=== PATIENT | male | born 1990 | race Caucasian/White ===

== ENCOUNTER → 2018-04-01 15:31 | Outpatient (REF) | payer BC, SELFPAY ==
[2018-04-01 16:49] LABS: Basophils % 0.6 % (0.1-2.0); Eosinophils # 0.1 K/mm3 (0.0-0.4); Eosinophils % 1.9 % (0.1-12.0); Hematocrit 48.2 % (42.0-52.0); Hemoglobin 15.9 g/dL (14.1-18.0); Lymphocytes # 2.2 K/mm3 (0.7-4.5); Lymphocytes % 32.3 K/mm3 (10-50); Mean Corpuscular Hemoglobin 29.7 pg (27.0-31.2); Mean Corpuscular Volume 89.9 fl (80-94); Mean Platelet Volume 7.7 fl (7.4-10.4); Monocytes # 0.4 K/mm3 (0.1-1.0); Monocytes % 5.9 % (1.7-9.3); Neutrophils % 59.2 % (37.0-80.0); Platelet Count 246 K/mm3 (142-424); Red Blood Count 5.36 M/mm3 (4.60-6.20); Red Cell Distribution Width 12.3 % (11.5-17.5); White Blood Count 6.8 K/mm3 (4.8-10.8)
[2018-04-01 19:10] LABS: Alanine Aminotransferase 56 U/L (12-78); Albumin Level 4.2 gm/dL (3.4-5.0); Albumin/Globulin Ratio 1.3 (1.1-1.8); Alkaline Phosphatase 62 U/L (46-116); Anion Gap 13.9 mEq/L (5-15); Aspartate Amino Transferase 23 U/L (15-37); Bilirubin,Total 0.5 mg/dL (0.2-1.0); Blood Urea Nitrogen 15 mg/dL (7-18); Calcium 9.1 mg/dL (8.5-10.1); Carbon Dioxide 25 mmol/L (21.0-32.0); Chloride 106 mmol/L (98-107); Chol/HDL Ratio 3.3 (1-3.5); Cholesterol 183 mg/dL (140-200); Creatinine,Serum 1.01 mg/dL (0.70-1.30); Estimated Glomerular Filt Rate 88 ml/min (>60); Free T4 (Free Thyroxine) 1.07 ng/dl (0.76-1.46); GFR (African American) 106 ML/MIN (>60); Globulin 3.2 gm/dl (1.3-3.2); Glucose 111 mg/dL (74-106); HDL Cholesterol 56 mg/dL (27-67); LDL Cholesterol 107 mg/dL (0-130); Potassium 3.9 mmoL/L (3.5-5.1); Sodium 141 mmol/L (136-145); Thyroid Stimulating Hormone 0.95 uIU/ml (0.358-3.740); Total Protein,Serum 7.4 gm/dL (6.4-8.2); Triglycerides 102 mg/dL (30-200); VLDL Cholesterol 20 mg/dL (0-40)
== END ==
LOC: LAB 15:31
PROVIDERS: Visit Provider Emergency Medicine
DX: R53.83 Other fatigue (principal); E66.3 Overweight
CPT/HCPCS: 80053; 80061; 84439; 84443; 85025

== ENCOUNTER 2024-02-21 23:03 | Emergency (ER) | payer BC, SELFPAY ==
[2024-02-21 23:05] VITALS: BP 155/109; PULSE 79; RESP 18; TEMP 36.7; O2SAT 100; BMI 40.7
[2024-02-21] MEDS: XARELTO 15MG THP 1 PACKET PAK PO (23:28)
[2024-02-21 23:30] VITALS: BP 152/104; PULSE 83; RESP 16; TEMP 36.7; O2SAT 100
--- NOTE | 2024-02-21 23:33 | HMH.EDGENADL ---
Discharge Plan Disposition Patient Disposition: Home, Self-Care Prescriptions Prescriptions: New Xarelto 15 mg tablet 15 mg PO BID 21 Days Qty: 42 0RF rivaroxaban 15 mg tablet 15 mg PO DAILY Qty: 69 0RF Rx Instructions: after you complete 21 days of twice a day therapy, begin taking once daily for total therapy duration of 3 months Referrals Follow up/Referrals: Benson Andersen PA [Primary Care Provider] - See instructions Activity Restrictions/Add. Instructions Additional Instructions/Restrictions: Please return to the hospital for formal ultrasound evaluation. Please begin taking anticoagulation as prescribed. You will take the rivaroxaban 2 times a day with food for 21 days, thereafter you will take 1 tablet/day for total duration of therapy of 3 months. Please follow-up with your primary care provider. Please return to the emergency department if you develop any new or worsening symptoms or become concerned for your health. Consider emergency department evaluation for any significant trauma as you are at high risk of bleeding in the brain chest and abdomen. Clinical Impressions Clinical Impression: Deep vein thrombosis (DVT) of popliteal vein of left lower extremity Qualifiers: Chronicity: acute Qualified Code(s): I82.432 - Acute embolism and thrombosis of left popliteal vein Instructions Patient Instructions: DI for Deep Vein Thrombosis, Direct Oral Anticoagulants (Alternative Therapy) Discharge ED Provider: Marco Huerta Adult HPI General Chief complaint: Extremity Injury, Lower Stated complaint: pain, swelling L calf, poss blood clot Time Seen by Provider: 02/21/24 23:05 Mode of Arrival: Ambulatory Source of Information: Patient Limitations: No Limitations Description of Symptoms (Recalled from ER Triage Doc. by RN): Pt presents with left calf pain x 1 week. Increased swelling and pain, hx of left ankle sx in Oct. Family hx of blood clotting disorder. Pt denies any CP or SOA. Dr Huerta at bedside with US History of Present Illness HPI narrative: 33-year-old male without significant past medical presents with left lower extremity pain and swelling. He reports some tightness in his calf. He reports he has been more active than normal lately. He did have ankle surgery on that ankle back in October but has not had any issues in the intervening time. Reports symptoms started within the last week. He denies any chest pain shortness of breath. Pain and swelling stops around the popliteal fossa. He reports that his father does have a clotting disorder related to factor S. He reports he was tested for this clotting issue but was reportedly negative, along with his brother. Despite this, both his father and his brother have both had DVTs. Related Data Previous Rx's Medication Instructions Recorded rivaroxaban 15 mg tablet 15 mg PO DAILY #69 tabs 02/21/24 rivaroxaban 15 mg tablet (Xarelto) 15 mg PO BID 21 days #42 tabs 02/21/24 Allergies Allergy/AdvReac Type Severity Reaction Status Date / Time NO KNOWN ALLERGIES - NKA Allergy Mild Uncoded 09/03/17 14:50 [facility] Disclaimer: The information contained in this section may have been updated after the patient was seen, as this information can be updated by other users. Social History Smoking Status: Never smoker alcohol intake: never substance use type: denies use current occupational status: employed Travel in the last 8 weeks: None ROS Obtained: Yes All systems reviewed & no additional complaints except as documented Physical Exam General General appearance: alert and in no apparent distress Head Head exam: atraumatic and normocephalic Eye Eye exam: Present normal appearance, PERRL and EOMI ENT ENT exam: Present normal oropharynx and normal external ear exam Neck Neck exam: Present normal inspection and full ROM Chest Chest inspection: Present normal inspection and symmetric chest wall rise; Absent tenderness Respiratory Respiratory exam: Present normal lung sounds bilaterally; Absent respiratory distress Cardiovascular Cardiovascular exam: Present regular rate and normal rhythm Abdominal Exam Abdominal exam: Present soft; Absent distention, tenderness or guarding Extremities Exam Extremities exam: Present other (Circumferential swelling of the left calf compared to the right with mild tenderness posterior calf. Normal pulse exam and cap refill.) Back Exam Back exam: Present normal inspection; Absent tenderness Neurological Exam Neurological exam: Present alert and oriented X3; Absent motor sensory deficit Psychiatric Psychiatric exam: Present normal affect and normal mood Skin Skin exam: Present warm, dry and normal color Lymphatic Lymphatic Findings: no adenopathy Medical Decision Making Medical Records Medical records reviewed: Yes I reviewed the patient's medical records. Eulalio Inquiry Pt receiving controlled substance: No Eulalio was queried for this patient: No Vital Signs: 02/21/24 23:05 Temperature 98.1 F Temperature Source Oral Pulse Rate [Left] 79 Respiratory Rate 18 Blood Pressure [Right Arm] 155/109 H Blood Pressure Mean [Right Arm] 124 Blood Pressure Source [Right Arm] Automatic Cuff Blood Pressure Position [Right Arm] Sitting 02 Sat by Pulse Oximetry 100 Oxygen Delivery Method Room Air Lab Data Lab results reviewed: Yes I reviewed the patient's lab results. Orders (Tests/Meds): ED MEDICATIONS Discontinued Medications Generic Name Dose Route Start Last Admin Trade Name Farheen PRN Reason Stop Dose Admin Rivaroxaban 1 packet 02/21/24 23:22 02/21/24 23:28 Xarelto 15mg Thp 1 Packet Luciano PO 02/21/24 23:23 1 packet ONCE ONE Administration Medical Decision Narrative: 33-year-old male with family history of clotting disorder presents for left calf pain and swelling for the last week. No recent provoking factors. No chest pain or shortness of breath.. History was obtained interactive discussion with patient, family. On arrival, patient is [afebrile, hemodynamically stable, satting appropriately, alert, oriented x4, GCS 15], moving all extremities spontaneously. Full physical exam performed and significant for left calf swelling and tenderness Differential includes but is not limited to DVT, cellulitis, heart failure, arterial thrombosis, fracture. Bedside ultrasound was performed and confirms existence of deep venous thrombosis in the left popliteal vein and extending distally. No proximal DVT on my evaluation. Given patient history, exam and workup, patient's presentation most likely represents acute unprovoked distal DVT of the left lower extremity. These findings were communicated to patient. Given this, he was initiated on anticoagulation with rivaroxaban in ER and discharged with prescription for same. I had extensive discussion with patient regarding return precautions and anticoagulation therapy. Patient was provided with outpatient order for confirmatory venous duplex of left lower extremity and instructed to follow-up with PCP for further assessment. Procedures Risk/Benefits of Procedure(s) Were Explained: Yes Limited Ultrasound Indication:: Limited DVT ultrasound Indication: Limited compression ultrasonography of the left lower extremity was performed to evaluate for non-compressibility of the deep veins in the patient. The ultrasound was performed with the following indications, as noted in the H&P: Left leg pain and swelling Identified structures: Left [common femoral vein, femoral vein, popliteal vein were examined.] Findings: Lower Extremity: Left CFV: Good compressibility Left FV good compressibility Left Popliteal vein: Noncompressible Impression: Acute left popliteal DVT Images were saved to permanent archive The study was technically adequate CPT: 80011-70-[id number] [id number] 53576-17 (complete bilateral study) This study was performed by me, and I personally interpreted all images/videos. Critical Care Critical Care Time Critical Care Time: No
[2024-02-21 23:42] VITALS: BP 155/109; PULSE 82; RESP 20; TEMP 36.1; O2SAT 100
[2024-02-21 23:46] VITALS: BP 175/105; PULSE 83; RESP 18; TEMP 36.6; O2SAT 100
--- NOTE | 2024-02-21 23:48 | PC.NURSE ---
Pt given xarelto take home pack as well as called in script. First dose given here. Pt given order for outpatient US and educated on needs to return.
== END 2024-02-21 23:48 | disposition home or self-care (01) ==
PROVIDERS: Emergency Provider Emergency Medicine; PCP Physician Assistant
DX: I82.432 Acute embolism and thrombosis of left popliteal vein (principal); M79.662 Pain in left lower leg
CPT/HCPCS: 99284